=== PATIENT | male | born 1965 | race Two or more races ===

== ENCOUNTER 2025-09-02 18:33 | Emergency (ER) | payer SELFPAY ==
[~2025-09-02] VITALS: Ht 185.4 cm; Wt 111.0 kg
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
[2025-09-02 22:09] VITALS: BP 118/81; PULSE 82; RESP 20; TEMP 98; O2SAT 99
== END 2025-09-02 22:18 | disposition home or self-care (01) ==
LOC: ER 18:35
DX: S13.4XXA Sprain of ligaments of cervical spine, initial encounter (principal); S29.012A Strain of muscle and tendon of back wall of thorax, initial encounter; S33.5XXA Sprain of ligaments of lumbar spine, initial encounter; V43.52XA Car driver injured in collision with other type car in traffic accident, initial encounter; Y93.89 Activity, other specified; Y92.488 Other paved roadways as the place of occurrence of the external cause; Y99.8 Other external cause status
CPT/HCPCS: 72040; 72070; 72100; 72125